=== PATIENT | female | born 1985 | race Caucasian/White ===

== ENCOUNTER 2016-08-17 02:04 | Inpatient (IN) | payer OTHER ==
[2016-08-17 03:41] LABS: Hematocrit 40 % (35-47); Hemoglobin 13.5 g/dl (12.0-16.0); Mean Corpuscular HGB Conc 34 g/dl (31-36); Mean Corpuscular Hemoglobin 31 pg (27-31); Mean Corpuscular Volume 91 fL (80-97); Mean Platelet Volume 11 um3 (7.4-10.4); Red Blood Count 4.39 10^6/ul (4.0-5.4); Red Cell Distribution Width 13 % (10.5-15); White Blood Count 16.2 10^3/ul (3.5-10.8)
[2016-08-17 04:21] LABS: Albumin 3.1 g/dL (3.2-5.2); BUN/Creatinine Ratio 14.1 (8-20); Calcium 8.8 mg/dL (8.6-10.3); EGFR African American 92.8 (>60); EGFR Non-African American 72.2 (>60); Globulin 2.5 g/dL (2-4); Potassium 3.8 mmol/L (3.5-5.0); Total Bilirubin 0.3 mg/dL (0.2-1.0); Total Protein 5.6 g/dL (6.4-8.9)
[2016-08-17] MEDS ORDERED: Ibuprofen TAB* 600 MG PO PRN (07:09)
[2016-08-17] MEDS ORDERED: Acetaminophen TAB* 325 MG PO PRN (07:09)
[2016-08-17] MEDS ORDERED: oxyCODONE/Acetamin 5/325 MG* TAB PO PRN (07:09)
[2016-08-17] MEDS ORDERED: Glycerin ADULT SUPP PR PRN (07:09)
[2016-08-17] MEDS: Witch Hazel PAD* JAR TOPICAL PRN (07:57)
[2016-08-17] MEDS: Dibucaine 1% 28.35 GM TUBE PR PRN (07:57)
[2016-08-17] MEDS ORDERED: Simethicone TAB* 80 MG TAB.CHEW PO SCH (08:30)
[2016-08-17] MEDS: Docusate CAP* 100 MG PO SCH ×3 (09:23→19:55)
[2016-08-18 08:17] LABS: Hematocrit 33 % (35-47); Hemoglobin 11.5 g/dl (12.0-16.0); Mean Corpuscular HGB Conc 34 g/dl (31-36); Mean Corpuscular Hemoglobin 32 pg (27-31); Mean Corpuscular Volume 92 fL (80-97); Mean Platelet Volume 10 um3 (7.4-10.4); Red Blood Count 3.62 10^6/ul (4.0-5.4); Red Cell Distribution Width 13 % (10.5-15)
[2016-08-18] MEDS: Docusate CAP* 100 MG PO SCH ×3 (09:50→20:40)
[2016-08-18] MEDS: Ferrous Gluconate TAB* 324 MG TAB PO SCH (12:05)
[2016-08-18] MEDS ORDERED: Influenza VAC *QUAD* 2016-17* 0.5 ML SYRINGE IM ONE (16:15)
[2016-08-18] MEDS: Dibucaine 1% 28.35 GM TUBE PR PRN (16:30)
[2016-08-18] MEDS: Witch Hazel PAD* JAR TOPICAL PRN (16:34)
[2016-08-19] MEDS: Ferrous Gluconate TAB* 324 MG TAB PO SCH (01:09)
--- NOTE | 2016-08-19 07:19 | PTEDU ---
Patient Name: CARON VIDAL CARON VIDAL selected video: Never Ever Shake a Baby to view on 08/19/2016 at 7:18:40 AM sona juarez [email or web address]
--- NOTE | 2016-08-19 07:33 | PTEDU ---
Patient Name: CARON VIDAL CARON VIDAL selected video: Follow Me Mum: [employer] to Successful to view on 0 08/19/2016 at 7:31:44 AM from [email or web address]
--- NOTE | 2016-08-19 07:53 | PTEDU ---
Patient Name: CARON VIDAL CARON VIDAL selected video: BBOB: Nurturing Your Gorgeous \T\Growing Baby by to view on 08/19/2016 at 7:52:49 AM [email or web address]
[2016-08-19 09:05] VITALS: BP 110/66
== END 2016-08-19 11:55 | disposition home or self-care (01) | DRG 775 ==
LOC: MCHOBOUT 02:04 → MCHOB 03:01
PROVIDERS: ADMIT Midwife; ATTEND Midwife
PROC: 10E0XZZ Delivery of Products of Conception, External Approach (ICD-10-PCS; principal; 2016-08-17)
PROC: 0DQR0ZZ Repair Anal Sphincter, Open Approach (ICD-10-PCS; 2016-08-17)
DX: O14.04 Mild to moderate pre-eclampsia, complicating childbirth (principal); O70.20 Third degree perineal laceration during delivery, unspecified; O48.0 Post-term pregnancy; Z3A.40 40 weeks gestation of pregnancy; Z37.0 Single live birth
CPT/HCPCS: 36415; 80053; 81002; 84550; 85025; 86850; 86900; 86901; 90686; A9270-GY

== ENCOUNTER 2021-01-22 03:09 | Inpatient (IN) ==
[2021-01-22] MEDS ORDERED: Buffered Lidocaine 1% SYRIN 1 ml INTRADERM ONE (04:07)
[2021-01-22] MEDS ORDERED: Lactated Ringers 1000 ml BAG 1,000 ML IV ONE (04:07)
[2021-01-22 04:28] LABS: ABS Eosinophils 0.1 10^3/ul (0-0.6); ABS Lymphocytes 2.3 10^3/ul (1.0-4.8); ABS Monocytes 0.7 10^3/ul (0-0.8); Eosinophil % 0.8 %; Hematocrit 40 % (35-47); Hemoglobin 13.8 g/dL (12.0-16.0); Lymphocyte % 25.4 %; Mean Corpuscular HGB Conc 34 g/dL (31-36); Mean Corpuscular Hemoglobin 32 pg (27-31); Mean Corpuscular Volume 94 fL (80-97); Nucleated Red Blood Cells % 0.1; Platelet Count 144 10^3/uL (150-450); Red Blood Count 4.28 10^6 /uL (3.70-4.87); Red Cell Distribution Width 13 % (10-15); White Blood Count 9.1 10^3/uL (3.5-10.8)
[2021-01-22 04:29] LABS: Urine Appearance Cloudy; Urine Bilirubin Negative (Negative); Urine Blood 3+ (Negative); Urine Color Yellow; Urine Glucose Negative (Negative); Urine Ketones Negative (Negative); Urine Nitrite Negative (Negative); Urine Protein 1+(30 mg/dL) (Negative); Urine Specific Gravity 1.014 (1.002-1.030); Urine Urobilinogen Negative (Negative)
[2021-01-22 04:33] LABS: Urine Bacteria Absent (Absent); Urine Red Blood Cell 3+(>10/hpf) (Absent); Urine Squamous Epithelial Cell Present (Absent); Urine White Blood Cell Trace(0-5/hpf) (Absent)
[2021-01-22 04:44] LABS: Albumin 3.3 g/dL (3.2-5.2); Albumin/Globulin Ratio 1.2 (1-3); Calcium 8.6 mg/dL (8.6-10.3); EGFR African American 122.7 (>60); EGFR Non-African American 101.4 (>60); Globulin 2.8 g/dL (2-4); Total Bilirubin 0.4 mg/dL (0.2-1.0); Total Protein 6.1 g/dL (6.4-8.9)
[2021-01-22 04:49] LABS: Urine Benzodiazepine Screen None Detected (None Detect); Urine Cannabinoids Screen None Detected (None Detect); Urine Opiates Screen None Detected (None Detect)
[2021-01-22] MEDS ORDERED: Lactated Ringers 1000 ml BAG 1,000 ML IV SCH (05:00)
[2021-01-22] MEDS ORDERED: Dibucaine 1% OINT 28.35 GM TUBE PR PRN (09:14)
[2021-01-22] MEDS ORDERED: Witch Hazel PAD JAR TOPICAL PRN (09:14)
[2021-01-22] MEDS ORDERED: Lidocaine 1% VIAL 10 MG/ML VIAL ONE (12:32)
[2021-01-23 06:45] LABS: ABS Basophils 0.1 10^3/ul (0-0.2); ABS Eosinophils 0.1 10^3/ul (0-0.6); ABS Lymphocytes 2.3 10^3/ul (1.0-4.8); ABS Monocytes 0.6 10^3/ul (0-0.8); ABS Neutrophils 8.6 10^3/ul (1.5-7.7); Eosinophil % 0.6 %; Hematocrit 37 % (35-47); Hemoglobin 13.2 g/dL (12.0-16.0); Lymphocyte % 19.7 %; Mean Corpuscular HGB Conc 36 g/dL (31-36); Mean Corpuscular Hemoglobin 33 pg (27-31); Mean Corpuscular Volume 93 fL (80-97); Mean Platelet Volume 10.3 fL (7.4-10.4); Platelet Count 153 10^3/uL (150-450); Red Blood Count 4.01 10^6 /uL (3.70-4.87); Red Cell Distribution Width 13 % (10-15); White Blood Count 11.6 10^3/uL (3.5-10.8)
[2021-01-23 08:57] VITALS: BP 138/74
== END 2021-01-23 11:20 | disposition home or self-care (01) | DRG 807 ==
LOC: MCHOBOUT 03:09 → MCHOB 04:13
PROVIDERS: ADMIT Midwife; ATTEND Midwife